=== PATIENT | male | born 1980 | race Caucasian/White ===

== ENCOUNTER → 2017-03-23 | Outpatient (CLI) | payer BC ==
[2017-03-23 19:00] LABS: ALT 37 U/L (21-72); AST 23 U/L (17-59); Alkaline Phosphatase 60 U/L (38-126); Anion Gap 11 mmol/L; Blood Urea Nitrogen 17 mg/dL (9-20); Calcium 9.6 mg/dL (8.4-10.2); Carbon Dioxide 22 mmol/L (22-30); Chloride 105 mmol/L (98-107); Cholesterol 196 mg/dL (<200); Glucose 89 mg/dL (74-99); HDL Cholesterol 41 mg/dL (40-60); Non-African American GFR(MDRD) >60 (>60 ml/min/1.73 sqM); Potassium 4.5 mmol/L (3.5-5.1); Sodium 138 mmol/L (137-145); Total Bilirubin 0.5 mg/dL (0.2-1.3)
[2017-03-23 19:06] LABS: Basophils % (A) 0 %; CH 31.5; CHCM 34.2; Eosinophils # (A) 0.6 k/uL (0-0.7); Eosinophils % (A) 6 %; HCT 49.5 % (39.0-53.0); HDW 2.71; HGB 16.4 gm/dL (13.0-17.5); Luc % (Auto) 1; Lymphocytes # (A) 2.7 k/uL (1.0-4.8); Lymphocytes % (A) 25 %; MCH 30.7 pg (25.0-35.0); MCHC 33.1 g/dL (31.0-37.0); MCV 92.5 fL (80.0-100.0); Mean Platelet Volume 9.2; Monocytes # (A) 0.7 k/uL (0-1.0); Monocytes % (A) 6 %; Neutrophils # (A) 6.5 k/uL (1.3-7.7); Neutrophils % (A) 62 %; RBC 5.35 m/uL (4.30-5.90); RDW 12.9 % (11.5-15.5); WBC 10.6 k/uL (3.8-10.6)
== END | disposition home or self-care (01) ==
LOC: MMGSC 15:42
PROVIDERS: ATTEND Family Medicine
DX: Z00.00 Encounter for general adult medical examination without abnormal findings (principal); R07.89 Other chest pain
CPT/HCPCS: 36415; 80053; 80061; 84439; 84443; 85025

== ENCOUNTER → 2017-03-29 | Outpatient (CLI) | payer BC ==
--- NOTE | 2017-03-30 05:56 | EST ---
EXERCISE STRESS DATE OF SERVICE: 03/29/2017 AGE: 36 SEX: Male HT: 5'10" WT: 190 PROTOCOL: Franco STAGE: V DURATION OF EXERCISE: 12:30 HEART RATE REST: 77 BLOOD PRESSURE REST: 117/75 MAXIMUM HEART RATE ACHIEVED: 166 MAXIMUM BLOOD PRESSURE: 171/62 85% MPHR: 157 100% MPHR: 185 METS: 12.8 INDICATIONS: Chest pain. CLINICAL INFORMATION: History of chest discomfort. The exercise stress test ordered by Dr. Georges. Baseline heart rate was 77 beats per minute. Baseline blood pressure 117/75 mmHg. Baseline 12-lead ECG shows normal sinus rhythm with early repolarization abnormality. Patient exercised on a Franco protocol for 12 minutes 30 seconds achieving a peak heart rate of 166 beats per minute. Normal blood pressure response to exercise. There was no ECG evidence for ischemia. No arrhythmias are noted. IMPRESSION: Excellent exercise capacity. No ECG evidence for ischemia. No sustained arrhythmias. MMODL / IJN: [id number] /
== END | disposition home or self-care (01) ==
LOC: RADNMMAIN 10:10
PROVIDERS: ATTEND Family Medicine
DX: R07.89 Other chest pain (principal)
CPT/HCPCS: 93017

== ENCOUNTER 2017-04-14 09:28 | Day surgery (SDC) | payer BC ==
[2017-04-11 15:36] VITALS: BMI 26.5
[~2017-04-14 09:28] MED LIST: LACTATED RINGERS 1,000 ML IV SCH
[2017-04-14 10:31] VITALS: TEMP 97
[2017-04-14] MEDS ORDERED: LIDOCAINE 1% 20 ML VIAL (10MG/ML) FOR IV START INTRADERMA ONE (10:39)
[2017-04-14] MEDS ORDERED: PROPOFOL 10 MG/ML 20 ML VIAL IV ONE (11:39)
[2017-04-14] MEDS ORDERED: LIDOCAINE 1% INJ 10MG/ML (20 ML MDV) ONE (11:39)
--- NOTE | 2017-04-14 12:01 | P.PCN ---
Date of Procedure: 04/14/17 Procedure(s) Performed: BRIEF HISTORY: Patient is a 36-year-old, pleasant, white male, scheduled for an upper endoscopy as a part of evaluation of long-standing history of GERD of 15 years duration. Presently on Prilosec 20 mg twice daily and lately has been having some chest pain 3-4 times a week.. PROCEDURE PERFORMED: Esophagogastroduodenoscopy with biopsy. PREOPERATIVE DIAGNOSIS: Long-standing history of GERD and atypical chest. IV sedation per anesthesia. PROCEDURE: After informed consent was obtained, the patient was brought into the endoscopy unit. IV sedation was administered by Anesthesia under continuous monitoring. Initially the Olympus GIF-140 video endoscope was inserted into the mouth. Esophagus intubated without any difficulty. It was gradually advanced into the stomach and duodenum and carefully examined. The bulb and the second part of the duodenum appeared normal. The scope at this time was withdrawn to the stomach, adequately insufflated with air, and upon careful examination, mucosa of the antrum, body, cardia and the fundus appeared normal. The scope was then withdrawn into the esophagus. The GE junction was located at 40 cm from the incisors. There were 2 superficial erosions at the GE junction consistent with LA grade a reflux esophagitis. There was a short segment of Hernandez's esophagus extending 5 mm proximal to the GE junction and this was biopsied. The rest of the esophagus appeared normal and the patient tolerated the procedure well IMPRESSION: 1. 2 superficial erosions at the GE junction consistent with LA grade A reflux esophagitis. 2. 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 RECOMMENDATIONS: The findings of this examination were discussed with the patient as well as his family. He was advised to follow with the biopsy results. He will continue with Prilosec 20 mg twice daily half hour before breakfast and dinnertime and follow antireflux measures. Will add Zantac 150 milligrams at bedtime because of ongoing symptoms. If the biopsy confirms the presence of Hernandez's esophagus, he can have a repeat upper endoscopy in 2 years.
[2017-04-14 12:14] VITALS: RESP 18
[2017-04-14 12:26] VITALS: BP 114/63; PULSE 71
== END 2017-04-14 13:26 | disposition home or self-care (01) ==
LOC: ORWHC2ENDO 09:28
PROVIDERS: ATTEND Internal Medicine Gastroenterology
DX: K21.0 Gastro-esophageal reflux disease with esophagitis (principal); K20.0 Eosinophilic esophagitis; F17.200 Nicotine dependence, unspecified, uncomplicated; Z79.899 Other long term (current) drug therapy
CPT/HCPCS: 88305; 43239; J2001; J2704

== ENCOUNTER 2018-01-07 04:06 | Emergency (ER) | payer BC ==
[2018-01-07 04:15] VITALS: RESP 18; TEMP 98.1
--- NOTE | 2018-01-07 05:38 | XR ---
EXAM: XR Left Ankle Complete, 3 or More Views XR Right Ankle Complete, 3 or More Views CLINICAL HISTORY: ITS.REASON XR Reason: Pain TECHNIQUE: Frontal, lateral and oblique views of the bilateral ankles. COMPARISON: No relevant prior studies available. FINDINGS: Bones/joints: Unremarkable. No acute fracture. No dislocation. Soft tissues: Mild soft tissue swelling about the lateral aspect of the right ankle. IMPRESSION: No acute bony abnormality. Soft tissue swelling about the right ankle
--- NOTE | 2018-01-07 05:41 | XR ---
EXAM: XR Right Knee, 3 views CLINICAL HISTORY: ITS.REASON XR Reason: Pain TECHNIQUE: Three views of the right knee. COMPARISON: No relevant prior studies available. FINDINGS: Bones/joints: Unremarkable. No acute fracture. No dislocation. Soft tissues: Unremarkable. IMPRESSION: No acute bony abnormality
--- NOTE | 2018-01-07 05:44 | ED ---
Lower Extremity Injury HPI - General Chief Complaint: Extremity Injury, Lower Stated Complaint: Ankle Injury Time Seen by Provider: 01/07/18 05:37 Source: patient Mode of arrival: ambulatory Limitations: no limitations - History of Present Illness Initial Comments: 37 years old male comes in with complaints about her right ankle pain and right knee pain he fell he stated he missed 2 steps he was holding his baby and he twisted his ankle as well his right knee he was able to bear weight he denies any head injury neck injury or any other injuries - Related Data Home Medications Medication Instructions Recorded Confirmed Lansoprazole 15 mg PO DAILY 04/11/17 04/14/17 Allergies Allergy/AdvReac Type Severity Reaction Status Date / Time No Known Allergies Allergy Verified 01/07/18 04:15 Review of Systems ROS Statement: Those systems with pertinent positive or pertinent negative responses have been documented in the HPI. ROS Other: All systems not noted in ROS Statement are negative. Past Medical History Past Medical History: GERD/Reflux History of Any Multi-Drug Resistant Organisms: None Reported Additional Past Surgical History / Comment(s): EGD Past Anesthesia/Blood Transfusion Reactions: No Reported Reaction Past Psychological History: No Psychological Hx Reported Smoking Status: Former smoker Past Alcohol Use History: Occasional Past Drug Use History: None Reported - Past Family History Mother Family Medical History: Cancer General Exam - General Exam Comments Initial Comments: General: The patient is awake and alert, in no distress, and does not appear acutely ill. Skin: Skin is warm and dry and no rashes or lesions are noted. Eye: Pupils are equal, round and reactive to light, extra-ocular movements are intact; there is normal conjunctiva bilaterally. Ears, nose, mouth and throat: There are moist mucous membranes and no oral lesions. Neck: The neck is supple, there is no tenderness or JVD. Cardiovascular: There is a regular rate and rhythm. No murmur, rub or gallop is appreciated. Respiratory: To auscultation bilateral, no wheezing no rhonchi no distress respiratory pickard noticed Gastrointestinal: Soft, non-distended, non-tender abdomen without masses or organomegaly noted. There is no rebound or guarding present. Bowel sounds are unremarkable. Back: There is no tenderness to palpation in the midline. There is no obvious deformity. Musculoskeletal: Decreased range of motion over the right ankle, noticed some swelling over the lateral malleolus no neurovascular compromise noticed. Right knee noticed very small superficial abrasion over the tibial tuberosity no swelling noticed no focal tenderness noticed range of motion is fine Neurological: CN II-XII intact, Cranial nerves III through XII are intact. There are no obvious motor or sensory deficits. Coordination appears grossly intact. Speech is normal. Psychiatric: Cooperative, appropriate mood & affect, normal judgment. Limitations: no limitations Course Vital Signs 01/07/18 04:12 Temperature 98.1 F Pulse Rate 73 Respiratory 18 Rate Blood Pressure 136/86 O2 Sat by Pulse 98 Oximetry Knee and ankle imaging are negative Disposition Clinical Impression: Ankle sprain, Knee contusion Disposition: HOME SELF-CARE Instructions: Ankle Sprain (ED) Additional Instructions: Advised to use Tylenol or Motrin on an as-needed basis Is patient prescribed a controlled substance at d/c from ED?: No Referrals: Mimi Lorenz MD [Primary Care Provider] - 1-2 days
[2018-01-07 06:19] VITALS: BP 133/84; PULSE 68
== END 2018-01-07 06:24 | disposition home or self-care (01) ==
LOC: EC 04:06
DX: S93.401A Sprain of unspecified ligament of right ankle, initial encounter (principal); S80.01XA Contusion of right knee, initial encounter; K21.9 Gastro-esophageal reflux disease without esophagitis; Z79.899 Other long term (current) drug therapy; Z87.891 Personal history of nicotine dependence; W10.9XXA Fall (on) (from) unspecified stairs and steps, initial encounter; X50.1XXA Overexertion from prolonged static or awkward postures, initial encounter
CPT/HCPCS: 99283

== ENCOUNTER → 2018-12-28 | Outpatient (CLI) | payer BC ==
[2018-12-28 10:30] LABS: Basophils % (A) 0 %; Eosinophils # (A) 0.3 k/uL (0-0.7); Eosinophils % (A) 4 %; HCT 44.7 % (39.0-53.0); HGB 15.1 gm/dL (13.0-17.5); Lymphocytes # (A) 1.8 k/uL (1.0-4.8); Lymphocytes % (A) 26 %; MCH 29.1 pg (25.0-35.0); MCHC 33.7 g/dL (31.0-37.0); MCV 86.4 fL (80.0-100.0); Mean Platelet Volume 8.2; Monocytes # (A) 0.4 k/uL (0-1.0); Monocytes % (A) 6 %; Neutrophils # (A) 4.2 k/uL (1.3-7.7); Neutrophils % (A) 61 %; Platelet Count 187 k/uL (150-450); RBC 5.17 m/uL (4.30-5.90); RDW 13.4 % (11.5-15.5); WBC 6.9 k/uL (3.8-10.6)
== END | disposition home or self-care (01) ==
LOC: LABPAT 09:15
PROVIDERS: ATTEND Surgery
DX: Z01.812 Encounter for preprocedural laboratory examination (principal); K21.0 Gastro-esophageal reflux disease with esophagitis
CPT/HCPCS: 85025

== ENCOUNTER → 2018-12-28 | Outpatient (CLI) | payer BC ==
[2018-12-28 17:06] LABS: African American GFR (CKD) 98.9 (60.0-200.0); Albumin 4.4 g/dL (3.80-4.90); Albumin/Globulin Ratio 2.32 (1.60-3.17); Anion Gap 8.7 mmol/L (4.00-12.00); BUN/Creat Ratio 13.64 Ratio (12.00-20.00); Calcium 9.4 mg/dL (8.7-10.3); Carbon Dioxide 27.3 mmol/L (21.6-31.8); Globulin 1.9 g/dL (1.6-3.3); LDL Cholesterol,Calculated 114.2 mg/dL (0.0-131.0); Potassium 4.8 mmol/L (3.5-5.5); Total Bilirubin 0.5 mg/dL (0.2-1.2); Total Protein 6.3 g/dL (6.2-8.2); VLDL Calculation 20.8 mg/dL (5.00-40.00)
[2018-12-28 17:12] LABS: T4, Free (Free Thyroxine) 1.1 ng/dL (0.80-1.80)
== END | disposition home or self-care (01) ==
LOC: LABWHC1 09:18
PROVIDERS: ATTEND Family Medicine
DX: Z00.00 Encounter for general adult medical examination without abnormal findings (principal)
CPT/HCPCS: 36415; 80053; 80061; 84439; 84443

== ENCOUNTER 2019-01-14 08:08 | Day surgery (SDC) | payer BC ==
[2019-01-04 15:40] VITALS: BMI 27.8
[~2019-01-14 08:08] MED LIST changes: -LACTATED RINGERS 1,000 ML IV SCH; +LIDOCAINE 1% 20 ML VIAL (10MG/ML) FOR IV START INTRADERMA PRN
[2019-01-14 08:33] VITALS: TEMP 98.2
[2019-01-14] MEDS: LACTATED RINGERS 1,000 ML IV SCH ×2 (08:37→09:18)
[2019-01-14] MEDS ORDERED: PROPOFOL 10 MG/ML 20 ML VIAL IV ONE (09:20)
[2019-01-14] MEDS ORDERED: LIDOCAINE 1% INJ 10MG/ML (20 ML MDV) ONE (09:20)
--- NOTE | 2019-01-14 09:31 | P.GSHP ---
History of Present Illness H&P Date: 01/14/19 Chief Complaint: GERD This is a 38-year-old male with complaints of GERD. He presents today for EGD. Past Medical History Past Medical History: GERD/Reflux History of Any Multi-Drug Resistant Organisms: None Reported Additional Past Surgical History / Comment(s): EGD Past Anesthesia/Blood Transfusion Reactions: No Reported Reaction Past Psychological History: No Psychological Hx Reported Smoking Status: Former smoker Past Alcohol Use History: Occasional Additional Past Alcohol Use History / Comment(s): SMOKEd 1/2 PPD SINCE AGE 18 Past Drug Use History: None Reported - Past Family History Mother Family Medical History: Cancer Medications and Allergies Home Medications Medication Instructions Recorded Confirmed Type Lansoprazole 15 mg PO DAILY 01/04/19 01/14/19 History Allergies Allergy/AdvReac Type Severity Reaction Status Date / Time No Known Allergies Allergy Verified 01/14/19 08:26 Surgical - Exam Vital Signs Temp Pulse Resp BP Pulse Ox 98.2 F 66 16 127/84 98 01/14/19 08:31 01/14/19 08:31 01/14/19 08:31 01/14/19 08:31 01/14/19 08:31 - General well developed, well nourished - Eyes PERRL - ENT normal pinna - Neck no masses - Abdomen Soft, nontender
--- NOTE | 2019-01-14 09:35 | P.OP ---
Date of Procedure: 01/14/19 Preoperative Diagnosis: GERD Postoperative Diagnosis: Hiatal hernia Esophagitis Procedure(s) Performed: EGD Anesthesia: LEONARDA Surgeon: Qasim Dwyer Pathology: other (Antrum, esophagus) Condition: stable Disposition: PACU Description of Procedure: The patient's placed on the endoscopy table in the lateral position. He received IV sedation. The gastroscope placed oropharynx and passed in the esophagus and into the stomach. Scope was then placed through the pylorus. The first and second portion of the duodenum appeared normal. Scope was then brought back the antrum and this appeared mildly inflamed. A biopsies performed. The scope was then retroflexed and the remainder of the stomach appeared normal. The GE junction was at 38 cm.. There was a moderate size hiatal hernia. The distal esophagus appeared mildly inflamed a biopsies performed. The proximal esophagus appeared normal. Scope was withdrawn for patient.
[2019-01-14 09:56] VITALS: RESP 16
[2019-01-14 09:57] VITALS: BP 116/76; PULSE 66
== END 2019-01-14 10:05 | disposition home or self-care (01) ==
LOC: ORWHC2ENDO 08:08
PROVIDERS: ATTEND Surgery
DX: K21.0 Gastro-esophageal reflux disease with esophagitis (principal); K29.50 Unspecified chronic gastritis without bleeding; K44.9 Diaphragmatic hernia without obstruction or gangrene; Z87.891 Personal history of nicotine dependence; Z79.899 Other long term (current) drug therapy
CPT/HCPCS: 88305; 43239; J2001; J2704

== ENCOUNTER 2019-01-15 06:15 | Inpatient (IN) | payer BC ==
[2019-01-04 15:09] VITALS: BMI 27.8
[~2019-01-15 06:15] MED LIST changes: +DEXAMETHASONE SOD PHOSPHATE 10 MG/ML 1 ML VIAL IV ONE; +HEPARIN SODIUM,PORCINE 5,000 UNIT/ML 1 ML VIAL SQ ONE; +HYDROmorphone 0.5 MG/0.5 ML SYRINGE IVP PRN; -LIDOCAINE 1% 20 ML VIAL (10MG/ML) FOR IV START INTRADERMA PRN; +MIDAZOLAM 2 MG/2 ML VIAL IV PRN; +ONDANSETRON 4 MG/2 ML VIAL IVP ONE; +SCOPOLAMINE 1.5MG/72HR PATCH TRANSDERM ONE; +ceFAZolin IN SWFI 2 GM/20 ML SYRINGE IVP ONE
[2019-01-15] MEDS: LACTATED RINGERS 1,000 ML IV SCH (06:58)
[2019-01-15] MEDS ORDERED: LIDOCAINE 1% INJ 10MG/ML (20 ML MDV) ONE (07:45)
[2019-01-15] MEDS ORDERED: MIDAZOLAM 2 MG/2 ML VIAL ONE (07:45)
[2019-01-15] MEDS ORDERED: KETOROLAC 30 MG/ML 1 ML VIAL ONE (07:45)
[2019-01-15] MEDS ORDERED: SUCCINYLCHOLINE CHLORIDE 100 MG/5 ML SYR IV ONE (07:45)
[2019-01-15] MEDS ORDERED: ROCURONIUM BROMIDE 10 MG/ML 10 ML VIAL IV ONE (07:45)
[2019-01-15] MEDS ORDERED: GLYCOPYRROLATE 0.2 MG/ML 2 ML VIAL ONE (07:45)
[2019-01-15] MEDS ORDERED: PROPOFOL 10 MG/ML 20 ML VIAL IV ONE (07:45)
[2019-01-15] MEDS ORDERED: NEOSTIGMINE 1 MG/ML 10 ML VIAL ONE (07:45)
[2019-01-15] MEDS ORDERED: fentaNYL (PF) 50 MCG/ML 2 ML AMP ONE (07:45)
--- NOTE | 2019-01-15 07:53 | P.GSHP ---
History of Present Illness H&P Date: 01/15/19 Chief Complaint: GERD This is a 38-year-old male referred from Dr.Laura Blackwell. Patient resents today for laparoscopic fundoplication. Patient has had long-standing chronic issues with GERD. She has a hiatal hernia. Past Medical History Past Medical History: GERD/Reflux History of Any Multi-Drug Resistant Organisms: None Reported Past Surgical History: No Surgical Hx Reported Additional Past Surgical History / Comment(s): EGD Past Anesthesia/Blood Transfusion Reactions: No Reported Reaction Past Psychological History: No Psychological Hx Reported Smoking Status: Former smoker Past Alcohol Use History: Occasional Additional Past Alcohol Use History / Comment(s): SMOKEd 1/2 PPD SINCE AGE 18 Past Drug Use History: None Reported - Past Family History Mother Family Medical History: Cancer Medications and Allergies Home Medications Medication Instructions Recorded Confirmed Type Lansoprazole 15 mg PO DAILY 01/04/19 01/15/19 History Allergies Allergy/AdvReac Type Severity Reaction Status Date / Time No Known Allergies Allergy Verified 01/15/19 06:32 Surgical - Exam Vital Signs Temp Pulse BP Pulse Ox 97.9 F 72 124/78 96 01/15/19 06:33 01/15/19 06:33 01/15/19 06:33 01/15/19 06:33 - General well developed, well nourished, no distress - Eyes PERRL - ENT normal pinna - Neck no masses - Respiratory normal expansion - Cardiovascular Rhythm: regular - Abdomen Abdomen: soft, non tender Assessment and Plan Assessment: GERD. We'll perform laparoscopic Catalina fundal plication. The patient is aware the risk of the conversion to the open procedure, risk of injury to the stomach, liver and spleen. The patient is also a risk of recurrent GERD and dysphagia symptoms. The patient understands there is a postoperative diet of full liquids for 2 weeks after surgery.
[2019-01-15] MEDS ORDERED: BUPIVACAINE (PF) 0.25% 30 ML VIAL SQ ONE (08:00)
[2019-01-15] MEDS ORDERED: LACTATED RINGERS 1,000 ML IV ONE (08:30)
[2019-01-15] MEDS ORDERED: HYDROmorphone 1 MG/ML 1 ML SYRINGE IVP PRN (09:31)
--- NOTE | 2019-01-15 09:36 | P.OP ---
Date of Procedure: 01/15/19 Preoperative Diagnosis: GERD Postoperative Diagnosis: GERD Procedure(s) Performed: Laparoscopic Catalina fundoplication Anesthesia: LEONARDA Surgeon: Qasim Dwyer Estimated Blood Loss (ml): 5 Pathology: none sent Condition: stable Disposition: PACU Description of Procedure: Garyhe patient was placed on the operating table in the supine position. The patient received general anesthesia. And was placed in dorsal lithotomy position. The patient was prepped and draped in the usual sterile fashion. The skin incision sites were anesthetized with 1% local Xylocaine. The skin was incised in the left periumbilical area and then using a blade less 5 mm trocar under direct visualization panel cavity was entered. After adequate insufflation the laparoscope was then placed into the peritoneal cavity. Next a 5 mm trochars placed in the right epigastric position. Another 5 millimeter trocar the right lateral position. Another 5 millimeter trocar in the left lateral position a 5 mm trocar is placed in the left epigastric position. And then the initial 5 mm trocar was exchanged for a 10 mm trocar. The left lateral lobe liver was retracted. The hernia was seen. The crural defect was then dissected using the Harmonic scissors device. A 360 crural dissection was performed the esophagus stomach was reduced back into the peritoneal Cavity. The crural defect was then closed using 2-0 Ethibond suture. Next the fundus of the stomach was mobilized using the [place] scissors device. and then a 58- Cypriot bougie dilator was placed oropharynx passed into the esophagus and stomach the fundal plication wrap was then performed by grasping the fundus posteriorly and bringing it around the esophagus and stomach fundoplication was then performed using 2-0 Ethibond suture. Care was taken that the fundal location rested over top of the intra-abdominal esophagus. There was no injury seen to the stomach or esophagus. The dilator was then withdrawn. The abdomen was irrigated there is no bleeding seen. The trochars were then withdrawn and then skin incision sites were closed using 3-0 Monocryl suture Steri-Strips are applied. Patient thought procedure well and sent to recovery room in stable condition.
[2019-01-15] MEDS: D5-0.45% NACL WITH KCL 20MEQ/L 1,000 ML IV SCH ×2 (11:18→23:09)
[2019-01-15] MEDS: METOCLOPRAMIDE 5 MG/ML 2 ML VIAL IVP SCH ×3 (12:17→23:05)
--- NOTE | 2019-01-15 14:11 | P.CONS ---
History of Present Illness - Reason for Consult Consult date: 01/15/19 Consult for medical management Requesting physician: Qasim Dwyer - Chief Complaint Consult for medical management - History of Present Illness The patient is a 38-year-old male with a past with a history of refractory GERD that has failed ongoing therapy with PPIs and H2 blockers for several years who is currently admitted to the general surgery team under Dr. Dwyer And is currently postop day #0 after having Catalina fundoplication. The patient is doing well denies any chest pain, shortness of breath, nausea, vomiting or abdominal pain, he only complains of left shoulder pain. The patient denies any pyrosis, denies bloating or passing gas but did report some belching. The patient otherwise has no other complaints. Review of Systems Pertinent positives per HPI all other review of system negative Past Medical History Past Medical History: GERD/Reflux History of Any Multi-Drug Resistant Organisms: None Reported Past Surgical History: No Surgical Hx Reported Additional Past Surgical History / Comment(s): EGD Past Anesthesia/Blood Transfusion Reactions: No Reported Reaction Past Psychological History: No Psychological Hx Reported Smoking Status: Former smoker Past Alcohol Use History: Occasional Additional Past Alcohol Use History / Comment(s): SMOKEd 1/2 PPD SINCE AGE 18 Past Drug Use History: None Reported - Past Family History Mother Family Medical History: Cancer Medications and Allergies Home Medications Medication Instructions Recorded Confirmed Type Lansoprazole 15 mg PO DAILY 01/04/19 01/15/19 History Allergies Allergy/AdvReac Type Severity Reaction Status Date / Time No Known Allergies Allergy Verified 01/15/19 08:55 Physical Exam Vitals: Vital Signs Temp Pulse Resp BP Pulse Ox 01/15/19 12:15 89 130/81 01/15/19 12:00 92 147/94 01/15/19 11:45 88 148/90 01/15/19 11:30 86 137/97 01/15/19 11:15 75 145/92 01/15/19 11:00 97.9 F 74 16 147/96 96 01/15/19 10:41 81 16 126/79 95 01/15/19 10:01 82 16 131/86 96 01/15/19 09:45 63 16 133/55 95 01/15/19 09:35 66 16 146/85 95 01/15/19 09:15 68 16 129/91 94 L 01/15/19 08:58 97.2 F L 78 16 144/84 92 L 01/15/19 06:33 97.9 F 72 124/78 96 Intake and Output 01/14/19 01/15/19 01/15/19 22:59 06:59 14:59 Intake Total 300 1200 Output Total 5 Balance 300 1195 Intake: IV 300 1200 Output: Estimated Blood Loss 5 Constitutional: No acute distress, conversant, pleasant Eyes: Anicteric sclerae, moist conjunctiva, no lid-lag, PERRLA ENMT: NC/AT,Oropharynx clear, no erythema, exudates Neck:Supple, FROM, no masses, or JVD, No carotid bruits; No thyromegaly Lungs: Clear to auscultation, Clear to percussion, Normal respiratory effort, no accessory muscle use Cardiovascular: Heart regular in rate and rhythm, No murmurs, gallops, or rubs no peripheral edema Abdominal: Soft Nontender, nom distended, no guarding, no rebound or rigidity, Normoactive bowel sounds No hepatomegaly, No splenomegaly, No palpable mass No abdominal wall hernia noted Skin: Normal temperature, tone, texture, turgor, No induration No subcutaneous nodules, No rash, lesions, No ulcers Extremities:No digital cyanosis No clubbing, Pedal pulses intact and symmetrical Radial pulses intact and symmetrical Normal gait and station, No calf tenderness Psychiatric: Alert and oriented to person, place and time, Appropriate affect Intact judgement Neuro: Muscles Strength 5/5 in all 4 extremities, Sensation to light touch grossly present throughout, Cranial nerves II-XII grossly intact. No focal sensory deficits Assessment and Plan (1) GERD (gastroesophageal reflux disease) Current Visit: Yes Status: Acute Code(s): K21.9 - GASTRO-ESOPHAGEAL REFLUX DISEASE WITHOUT ESOPHAGITIS SNOMED Code(s): 484859116 (2) Status post Catalina fundoplication Current Visit: Yes Status: Acute Code(s): Z98.890 - OTHER SPECIFIED POSTPROCEDURAL STATES SNOMED Code(s): 916013882 Plan: The patient is admitted to general surgery service after having a Catalina fundoplication secondary to refractory GERD, patient doing well postop hemodynamically stable he's restarted on his PPI therapy. We'll continue to monitor. Anticipated discharge tomorrow
--- NOTE | 2019-01-15 15:02 | FL ---
EXAMINATION TYPE: FL esophagus cervic/pharynx DATE OF EXAM: 01/15/2019 HISTORY: Status post Catalina fundoplication. Postoperative exam. COMPARISON: NONE TECHNIQUE: A single contrast focused esophagram is performed utilizing 30 mL of Isovue 370. Fluoros copy time of 41 seconds was utilized with 14 images saved. FINDINGS: The patient swallowed contrast without difficulty or delay. Esophageal peristalsis and mo tility are within normal limits. There is very mild delay flow of contrast along the diaphragmatic hi atus into the stomach, there is no evidence of contrast extravasation to suggest leak. No persistent hiatal hernia is seen. Patient remains asymptomatic. IMPRESSION: No evidence of leak or significant obstruction status post Cy fundoplication surgery earlier today.
[2019-01-15] MEDS ORDERED: HYDROcodone/APAP 5-325MG 1 EACH TAB PO PRN (15:42)
[2019-01-15] MEDS: ACETAMINOPHEN TAB 325 MG TAB PO PRN (15:45)
[2019-01-16] MEDS: LACTATED RINGERS 1,000 ML IV SCH (04:15)
[2019-01-16] MEDS: D5-0.45% NACL WITH KCL 20MEQ/L 1,000 ML IV SCH (04:15)
[2019-01-16] MEDS: METOCLOPRAMIDE 5 MG/ML 2 ML VIAL IVP SCH (05:05)
[2019-01-16 07:07] VITALS: BP 139/90; PULSE 76; RESP 12; TEMP 98
[2019-01-16] MEDS ORDERED: PANTOPRAZOLE 40 MG TABLET PO SCH (07:30)
[2019-01-16] MEDS: ACETAMINOPHEN TAB 325 MG TAB PO PRN (07:42)
[2019-01-16] MEDS ORDERED: ENOXAPARIN 40 MG/0.4 ML SYRINGE SQ SCH (09:00)
--- NOTE | 2019-01-16 09:19 | P.DS ---
Providers Date of admission: 01/15/19 06:15 Expected date of discharge: 01/16/19 Attending physician: Qasim Dwyer Consults: 01/15/19 09:31 Consult Physician Routine Consulting Provider: Janet Sánchez Consult Reason/Comments: Medical management Do you want consulting provider notified?: Yes Primary care physician: Mimi Lorenz [facility] Course: 38-year-old male who underwent laparoscopic Catalina fundoplication secondary to GERD with Dr. Dwyer on 01/15/2019. Esophagram completed postoperatively negative for leak or obstruction. Patient is tolerating clear liquid diet. Vital signs have been stable. Pain is controlled on oral medications. He is stable for discharge home today. Please see EMR for further hospital course details. Discharge diagnosis 1. GERD, status post laparoscopic Catalina fundoplication Nurse practitioner note has been reviewed by physician. Signing provider agrees with the documented findings, assessment, and plan of care. Plan - Discharge Summary Discharge Rx Participant: Yes New Discharge Prescriptions: New Hydrocodone/Acetaminophen [[place] 5-325] 1 tab PO Q4HR PRN 3 Days #18 tab PRN Reason: Pain No Action Lansoprazole 15 mg PO DAILY Discharge Medication List Lansoprazole 15 mg PO DAILY 01/04/19 [History] Hydrocodone/Acetaminophen [[place] 5-325] 1 tab PO Q4HR PRN 3 Days #18 tab 01/16/19 [Rx] Follow up Appointment(s)/Referral(s): Mimi Lorenz MD [Primary Care Provider] - 1 Week Qasim Dwyer MD [STAFF PHYSICIAN] - 2 Weeks Activity/Diet/Wound Care/Special Instructions: No driving while taking [place] No lifting over 10 pounds You may shower. No soaking or tub baths Very light activity until you are reevaluated at your follow up appointment with your surgeon FULL LIQUID DIET FOR TWO WEEKS Discharge Disposition: HOME SELF-CARE
--- NOTE | 2019-01-16 15:41 | P.PN ---
Subjective Progress Note Date: 01/16/19 The patient is seen and examined at bedside doing well, has no complaints denies any nausea or bloating, had postop esophagram that was negative for leak or obstructionm patient tolerating clear liquid diet well, Objective - Vital Signs Vital signs: Vital Signs Temp 98 F 01/16/19 07:00 Pulse 76 01/16/19 07:00 Resp 12 01/16/19 07:00 BP 139/90 01/16/19 07:00 Pulse Ox 100 01/16/19 07:00 Intake & Output 01/15/19 01/16/19 01/16/19 18:59 06:59 18:59 Intake Total 1999 1490 240 Output Total 5 Balance 1994 1490 240 Weight 90.718 kg Intake: IV 1200 Intake, IV Titration 1250 Amount D5-0.45% NaCl with KCl 1250 20Meq/l 1,000 ml @ 125 mls/hr IV .Q8H JOSE Rx#: [id number] Oral 800 240 240 Output: Estimated Blood Loss 5 Other: Voiding Method Toilet Urinal # Voids 1 3 2 - Exam Constitutional: No acute distress, conversant, pleasant Eyes: Anicteric sclerae, moist conjunctiva, no lid-lag, PERRLA ENMT: NC/AT,Oropharynx clear, no erythema, exudates Neck:Supple, FROM, no masses, or JVD, No carotid bruits; No thyromegaly Lungs: Clear to auscultation, Clear to percussion, Normal respiratory effort, no accessory muscle use Cardiovascular: Heart regular in rate and rhythm, No murmurs, gallops, or rubs no peripheral edema Abdominal: Soft Nontender, nom distended, no guarding, no rebound or rigidity, Normoactive bowel sounds No hepatomegaly, No splenomegaly, No palpable mass No abdominal wall hernia noted Skin: Normal temperature, tone, texture, turgor, No induration No subcutaneous nodules, No rash, lesions, No ulcers Extremities:No digital cyanosis No clubbing, Pedal pulses intact and symmetrical Radial pulses intact and symmetrical Normal gait and station, No calf tenderness Psychiatric: Alert and oriented to person, place and time, Appropriate affect Intact judgement Neuro: Muscles Strength 5/5 in all 4 extremities, Sensation to light touch gross ly present throughout, Cranial nerves II-XII grossly intact. No focal sensory deficits Assessment and Plan (1) GERD (gastroesophageal reflux disease) Narrative/Plan: * Continue PPI therapy with lansoprazole Status: Acute Code(s): K21.9 - GASTRO-ESOPHAGEAL REFLUX DISEASE WITHOUT ESOPHAGITIS SNOMED Code(s): 323323353 (2) Status post Catalina fundoplication Narrative/Plan: * Doing well without any postop complications post procedural esophagram negative for any leak or obstruction * Stable for discharge Status: Acute Code(s): Z98.890 - OTHER SPECIFIED POSTPROCEDURAL STATES SNOMED Code(s): 388622442 Plan: Patient stable for discharge as follow-up with surgeon in 2 weeks
== END 2019-01-16 12:03 | disposition home or self-care (01) | DRG 328 ==
LOC: 2ORMAIN 06:15 → 4SSUR 10:50
PROVIDERS: ADMIT Surgery; ATTEND Surgery
PROC: 0DV44ZZ Restriction of Esophagogastric Junction, Percutaneous Endoscopic Approach (ICD-10-PCS; principal; 2019-01-15 07:40)
DX: K21.9 Gastro-esophageal reflux disease without esophagitis (principal); K44.9 Diaphragmatic hernia without obstruction or gangrene; Z87.891 Personal history of nicotine dependence; Z80.9 Family history of malignant neoplasm, unspecified
CPT/HCPCS: 74210

== ENCOUNTER → 2020-05-18 | Outpatient (CLI) | payer BC | END | disposition home or self-care (01) | LOC: LABWHC1 14:40 | PROVIDERS: ATTEND Family Medicine | DX: Z03.818 Encounter for observation for suspected exposure to other biological agents ruled out (principal) | CPT/HCPCS: U0003; C9803 ==